=== PATIENT | male | born 1975 | race Caucasian/White ===

== ENCOUNTER 2023-03-01 19:10 | Emergency (ER) | payer BC, SELFPAY ==
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
[2023-03-01 19:19] VITALS: BP 135/81; PULSE 80; RESP 16; TEMP 36.8; O2SAT 98
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
--- NOTE | 2023-03-01 19:38 | PC.NURSE ---
1932- Rn to RN report given. Pt transferred to [facility] for R elbow xray
== END 2023-03-01 20:00 | disposition home or self-care (01) ==
PROVIDERS: Emergency Provider Nurse Practitioner Family
DX: S50.811A Abrasion of right forearm, initial encounter (principal); S50.11XA Contusion of right forearm, initial encounter; V86.06XA Driver of dirt bike or motor/cross bike injured in traffic accident, initial encounter
CPT/HCPCS: 73080; 99213; G0463